=== PATIENT | female | born 1985 | race Hispanic/Latino ===

== ENCOUNTER 2017-05-01 03:16 | Emergency (ER) | payer BC ==
[2017-05-01 03:16] VITALS: BMI 21.4
[2017-05-01 03:46] VITALS: BP 107/76; PULSE 100; TEMP 98.6; O2SAT 97
--- NOTE | 2017-05-01 03:53 | ED PDOC ---
Arrival/HPI - General Chief Complaint: Shortness Of Breath Time Seen by Provider: 05/01/17 03:30 Historian: Patient - History of Present Illness Narrative History of Present Illness (Text): 05/01/17 03:48 Kurtis Dyson is a 31 year old female, whose past medical history includes asthma, presents to the Emergency department complaining of possible chest pain prior to arrival. Patient states she was cleaning her home a week ago when she had an episode of asthma exacerbation. Patient informs going to an urgent care and was diagnosed with possible inflammation of the bronchus. Patient currently states no trouble breathing but states worsening chest pain for which she presents to the Emergency department. Patient denies any fever, chills, nausea, vomiting, abdominal pain, trauma or any other complaints. Patient informs her last menstrual cycle was a couple weeks ago. Time/Duration: Prior to Arrival Symptom Onset: Gradual Symptom Course: Unchanged Quality: Aching Activities at Onset: Light Context: Home Past Medical History - Provider Review Nursing Documentation Reviewed: Yes - Tetanus Immunization Tetanus Immunization: Unknown - Cardiac Hx Cardiac Disorders: No - Pulmonary Hx Asthma: Yes - Neurological Hx Neurological Disorder: No - HEENT Hx HEENT Disorder: No - Renal Hx Renal Disorder: No - Endocrine/Metabolic Hx Endocrine Disorders: No - Hematological/Oncological Hx Blood Disorders: No - Integumentary Hx Dermatological Disorder: No - Musculoskeletal/Rheumatological Hx Musculoskeletal Disorders: No - Gastrointestinal Hx Gastrointestinal Disorders: No - Genitourinary/Gynecological Hx Genitourinary Disorders: No - Psychiatric Hx Depression: Yes Hx Emotional Abuse: No Hx Physical Abuse: No Hx Substance Use: No - Past Surgical History Past Surgical History: No Previous - Suicidal Assessment Feels Threatened In Home Enviroment: No Family/Social History - Physician Review Nursing Documentation Reviewed: Yes Family/Social History: Unknown Family HX Smoking Status: Never Smoked Hx Alcohol Use: No Hx Substance Use: No Hx Substance Use Treatment: No Allergies/Home Meds Allergies/Adverse Reactions: Allergies No Known Allergies Allergy (Verified 05/01/17 03:41) Home Medications: Home Meds Medication Instructions Recorded Confirmed Albuterol Sulfate [Proair Hfa] 0.09 mg IH PRN PRN 05/01/17 05/01/17 predniSONE [predniSONE Tab] 4 mg PO QID 05/01/17 05/01/17 Review of Systems - Physician Review All systems were reviewed & negative as marked: Yes - Review of Systems Constitutional: Normal. absent: Fevers, Night Sweats Eyes: Normal ENT: Normal Respiratory: Other (mild discomfort breathing secondary to chest pain ). absent : SOB Cardiovascular: Chest Pain Gastrointestinal: Normal. absent: Abdominal Pain, Diarrhea, Nausea, Vomiting Genitourinary Female: Normal Musculoskeletal: Normal Skin: Normal Neurological: Normal Endocrine: Normal Hemo/Lymphatic: Normal Psychiatric: Normal Physical Exam Vital Signs Reviewed: Yes Vital Signs Temp Pulse Resp BP Pulse Ox 05/01/17 03:42 98.6 F 100 H 18 107/76 97 Temperature: Afebrile Blood Pressure: Normal Pulse: Regular Respiratory Rate: Normal Appearance: Positive for: Well-Appearing, Non-Toxic, Comfortable Pain Distress: None Mental Status: Positive for: Alert and Oriented X 3 - Systems Exam Head: Present: Atraumatic, Normocephalic Pupils: Present: PERRL Extroacular Muscles: Present: EOMI Conjunctiva: Present: Normal Mouth: Present: Moist Mucous Membranes Neck: Present: Normal Range of Motion Respiratory/Chest: Present: Clear to Auscultation, Good Air Exchange. No: Respiratory Distress, Accessory Muscle Use Cardiovascular: Present: Regular Rate and Rhythm, Normal S1, S2. No: Murmurs Abdomen: Present: Normal Bowel Sounds. No: Tenderness, Distention, Peritoneal Signs Back: Present: Normal Inspection Upper Extremity: Present: Normal Inspection. No: Cyanosis, Edema Lower Extremity: Present: Normal Inspection. No: Edema Neurological: Present: GCS=15, CN II-XII Intact, Speech Normal Skin: Present: Warm, Dry, Normal Color. No: Rashes Psychiatric: Present: Alert, Oriented x 3, Normal Insight, Normal Concentration Medical Decision Making ED Course and Treatment: 05/01/17 03:55 Impression: 31 year old female presents to the Emergency department complaining of chest pain. Differential Diagnosis included but are not limited to: asthma exacerbation vs. inflammation of bronchioles Plan: -- Chest X-ray -- Reassess and disposition Progress Notes: - RAD Interpretation Radiology Orders: 05/01/17 03:50 CHEST TWO VIEWS (PA/LAT) [RAD] Stat - Scribe Statement The provider has reviewed the documentation as recorded by the Scribe Mali Colin. All medical record entries made by the Scribe were at my direction and personally dictated by me. I have reviewed the chart and agree that the record accurately reflects my personal performance of the history, physical exam, medical decision making, and the department course for this patient. I have also personally directed, reviewed, and agree with the discharge instructions and disposition. Disposition/Present on Arrival - Present on Arrival Any Indicators Present on Arrival: No History of DVT/PE: No History of Uncontrolled Diabetes: No Urinary Catheter: No History of Decub. Ulcer: No History Surgical Site Infection Following: None - Disposition Have Diagnosis and Disposition been Completed?: No Diagnosis: Bronchitis Disposition: HOME/ ROUTINE Disposition Time: 05:00 Patient Plan: Discharge Condition: STABLE Prescriptions: Budesonide [Pulmicort Flexhaler] 90 mcg IH BID #1 [email or web address] Forms: [employer] ([place])
[2017-05-01 05:09] VITALS: RESP 16
--- NOTE | 2017-05-01 09:46 | RAD ---
HISTORY: pain COMPARISON: 05/29/2016 TECHNIQUE: Chest PA and lateral FINDINGS: LUNGS: No active pulmonary disease. PLEURA: No significant pleural effusion identified. No pneumothorax apparent. CARDIOVASCULAR: Normal. OSSEOUS STRUCTURES: No significant abnormalities. VISUALIZED UPPER ABDOMEN: Normal. OTHER FINDINGS: None. IMPRESSION: No active disease.
== END 2017-05-01 05:09 | disposition home or self-care (01) ==
LOC: ED 03:16
DX: J40 Bronchitis, not specified as acute or chronic (principal)

== ENCOUNTER 2017-08-20 01:03 | Emergency (ER) | payer BC ==
[2017-08-20 01:03] VITALS: BMI 21.4
[2017-08-20 02:16] VITALS: BP 113/72; PULSE 90; RESP 18; TEMP 98; O2SAT 98
--- NOTE | 2017-08-20 02:31 | ED PDOC ---
Arrival/HPI - General Chief Complaint: Allergic Reaction Time Seen by Provider: 08/20/17 02:06 Historian: Patient - History of Present Illness Narrative History of Present Illness (Text): 08/20/17 02:32 A 32 year old female, whose past medical history includes bronchial asthma, presents to the emergency department complaining of hive-like skin rash to lower legs for the past day and half. Patient reports itching to area. Patient started taking Benadryl, which improved her symptoms. Reports a little shortness of breath during the day and used her inhaler, with relief. Patient notes she took Benadryl earlier today. Patient denies any chest pain, shortness of breath, fever, chills or any other complaints at this time. Symptom Onset: Sudden Symptom Course: Unchanged Activities at Onset: Rest Context: Home Past Medical History - Provider Review Nursing Documentation Reviewed: Yes - Tetanus Immunization Tetanus Immunization: Unknown - Cardiac Hx Cardiac Disorders: No - Pulmonary Hx Asthma: Yes - Neurological Hx Neurological Disorder: No - HEENT Hx HEENT Disorder: No - Renal Hx Renal Disorder: No - Endocrine/Metabolic Hx Endocrine Disorders: No - Hematological/Oncological Hx Blood Disorders: No - Integumentary Hx Dermatological Disorder: No Hx Eczema: Yes - Musculoskeletal/Rheumatological Hx Musculoskeletal Disorders: No - Gastrointestinal Hx Gastrointestinal Disorders: No - Genitourinary/Gynecological Hx Genitourinary Disorders: No - Psychiatric Hx Anxiety: Yes Hx Depression: Yes Hx Emotional Abuse: No Hx Physical Abuse: No Hx Substance Use: No - Past Surgical History Past Surgical History: No Previous - Suicidal Assessment Feels Threatened In Home Enviroment: No Family/Social History - Physician Review Nursing Documentation Reviewed: Yes Family/Social History: No Known Family HX Smoking Status: Never Smoked Hx Alcohol Use: No Hx Substance Use: No Hx Substance Use Treatment: No Allergies/Home Meds Allergies/Adverse Reactions: Allergies No Known Allergies Allergy (Verified 08/20/17 02:09) Home Medications: Home Meds Medication Instructions Recorded Confirmed Albuterol Sulfate [Proair Hfa] 1 inhaler INH Q4 PRN 08/20/17 08/20/17 Walfex 180 mg PO DAILY 08/20/17 08/20/17 Review of Systems - Physician Review All systems were reviewed & negative as marked: Yes - Review of Systems Constitutional: absent: Fevers, Other (chills) Respiratory: absent: SOB Cardiovascular: absent: Chest Pain Skin: Rash (lower legs) Physical Exam Vital Signs Reviewed: Yes Vital Signs Temp Pulse Resp BP Pulse Ox 08/20/17 02:11 98.0 F 90 18 113/72 98 Temperature: Afebrile Blood Pressure: Normal Pulse: Regular Respiratory Rate: Normal Appearance: Positive for: Well-Appearing, Non-Toxic, Comfortable Pain Distress: None Mental Status: Positive for: Alert and Oriented X 3 - Systems Exam Head: Present: Atraumatic, Normocephalic Pupils: Present: PERRL Extroacular Muscles: Present: EOMI Conjunctiva: Present: Normal Mouth: Present: Moist Mucous Membranes Neck: Present: Normal Range of Motion Respiratory/Chest: Present: Clear to Auscultation, Good Air Exchange. No: Respiratory Distress, Accessory Muscle Use Cardiovascular: Present: Regular Rate and Rhythm, Normal S1, S2. No: Murmurs Abdomen: No: Tenderness, Distention, Peritoneal Signs Back: Present: Normal Inspection Upper Extremity: Present: Normal Inspection. No: Cyanosis, Edema Lower Extremity: Present: Normal Inspection. No: Edema Neurological: Present: GCS=15, CN II-XII Intact, Speech Normal Skin: Present: Rashes (few scattered urticarial to lower legs) Psychiatric: Present: Alert, Oriented x 3, Normal Insight, Normal Concentration Medical Decision Making ED Course and Treatment: 08/20/17 02:29 Impression: A 32 year old female with rash to lower legs. Plan: -- Solumedrol -- Reassess and disposition Prior Visits: Notes and results from previous visits were reviewed. Patient was last seen in the emergency department on 05/01/17 for evaluation of chest pain. Progress Notes: - Medication Orders Current Medication Orders: Discontinued Medications Methylprednisolone (Solu-Medrol) 125 mg IVP ONCE ONE Stop: 08/20/17 02:26 Last Admin: 08/20/17 02:40 Dose: 125 mg IVP Administration Document 08/20/17 02:40 SS (Rec: 08/20/17 02:42 SS [id number]) Charges for Administration # of IVP Administrations 1 - Scribe Statement The provider has reviewed the documentation as recorded by the Fady Odom Provider Scribe Attestation: All medical record entries made by the Scribe were at my direction and personally dictated by me. I have reviewed the chart and agree that the record accurately reflects my personal performance of the history, physical exam, medical decision making, and the department course for this patient. I have also personally directed, reviewed, and agree with the discharge instructions and disposition. Disposition/Present on Arrival - Present on Arrival Any Indicators Present on Arrival: No History of DVT/PE: No History of Uncontrolled Diabetes: No Urinary Catheter: No History of Decub. Ulcer: No History Surgical Site Infection Following: None - Disposition Have Diagnosis and Disposition been Completed?: Yes Diagnosis: Allergic reaction, Urticaria Disposition: HOME/ ROUTINE Disposition Time: 03:20 Patient Plan: Discharge Condition: STABLE Discharge Instructions (ExitCare): [place] (DC) Additional Instructions: Take meds as prescribed/follow up with your doctor this week Prescriptions: DiphenhydrAMINE [Benadryl] 50 mg PO Q6 PRN #24 cap PRN Reason: Itching / Pruritus predniSONE [Prednisone] 40 mg PO DAILY #10 tab Referrals: Abel Haines MD [Staff Provider] - Follow up with primary Forms: [employer] ([place])
== END 2017-08-20 03:46 | disposition home or self-care (01) ==
LOC: ED 01:03
DX: L50.0 Allergic urticaria (principal)
CPT/HCPCS: 96374; 99283; J2930

== ENCOUNTER 2017-08-31 03:22 | Emergency (ER) | payer SELFPAY ==
[2017-08-31 03:22] VITALS: BMI 21.4
[2017-08-31 03:27] VITALS: RESP 18
[2017-08-31] MEDS ORDERED: DiphenhydrAMINE 50 mg/ml Inj ONE (03:40)
[2017-08-31] MEDS ORDERED: DiphenhydrAMINE 50 mg/ml Inj IVP STA (03:49)
[2017-08-31] MEDS ORDERED: Famotidine 20mg/50ml 20 MG/50 ML BAG IVPB STA (03:49)
[2017-08-31] MEDS ORDERED: Sodium Chloride 0.9% 1,000 ML IV STA (03:54)
--- NOTE | 2017-08-31 04:04 | ED PDOC ---
Arrival/HPI - General Chief Complaint: Allergic Reaction Time Seen by Provider: 08/31/17 03:27 - History of Present Illness Narrative History of Present Illness (Text): 32 y/o F c history of seasonal allergies, asthma, eczema p/w urticaria to limbs and lip swelling today. Patient states she had similar symptoms earlier this week, was treated in hospital with benadryl and steroids, resolved, stopped steroids 2 days early, now has urticaria and lip swelling. Unknown allergen. States threw out body wash, only eating tomato/cheese/lettuce sandwiches in fear or eating an allergen. Past Medical History - Infectious Disease Hx of Infectious Diseases: None - Tetanus Immunization Tetanus Immunization: Unknown - Cardiac Hx Cardiac Disorders: No - Pulmonary Hx Asthma: Yes - Neurological Hx Neurological Disorder: No - HEENT Hx HEENT Disorder: No - Renal Hx Renal Disorder: No - Endocrine/Metabolic Hx Endocrine Disorders: No - Hematological/Oncological Hx Blood Disorders: No - Integumentary Hx Dermatological Disorder: No Hx Eczema: Yes - Musculoskeletal/Rheumatological Hx Musculoskeletal Disorders: No - Gastrointestinal Hx Gastrointestinal Disorders: No Hx Gastroesophageal Reflux: Yes - Genitourinary/Gynecological Hx Genitourinary Disorders: No - Psychiatric Hx Anxiety: Yes Hx Depression: Yes Hx Emotional Abuse: No Hx Physical Abuse: No Hx Substance Use: No - Past Surgical History Past Surgical History: No Previous - Anesthesia Hx Anesthesia: No - Suicidal Assessment Feels Threatened In Home Enviroment: No Family/Social History Family/Social History: No Known Family HX Smoking Status: Never Smoked Hx Alcohol Use: No Hx Substance Use: No Hx Substance Use Treatment: No Allergies/Home Meds Allergies/Adverse Reactions: Allergies No Known Allergies Allergy (Verified 08/20/17 02:09) Home Medications: Home Meds Medication Instructions Recorded Confirmed Albuterol Sulfate [Proair Hfa] 1 inhaler INH Q4 PRN 08/20/17 08/20/17 Walfex 180 mg PO DAILY 08/20/17 08/20/17 Review of Systems - Physician Review All systems were reviewed & negative as marked: Yes - Review of Systems Constitutional: absent: Fevers Cardiovascular: absent: Chest Pain Physical Exam - Physical Exam Narrative Physical Exam (Text): Gen: NAD Head: NC Eyes: PERRL ENT: No stridor. Lips swollen. No tongue swelling. Neck: Supple CV: Regular rate Lungs: No wheezing Abd: Soft Skin: Urticaria Extremities: No edema Neuro: Alert Vital Signs Temp Pulse Resp BP Pulse Ox 08/31/17 03:27 97.9 F 92 H 18 138/82 98 Medical Decision Making ED Course and Treatment: Benadryl, Pepcid, Solumedrol, IVF and reassess. Feels much better. Discharge on epi pen. F/u allergy, return to ED immediately for any vomiting, lightheadedness, or difficulty breathing. - Medication Orders Current Medication Orders: Discontinued Medications Diphenhydramine HCl (Benadryl) 50 mg IVP STAT STA Stop: 08/31/17 03:50 Last Admin: 08/31/17 04:07 Dose: 50 mg IVP Administration Document 08/31/17 04:07 RADHA (Rec: 08/31/17 04:07 RADHA [id number]) Charges for Administration # of IVP Administrations 1 Famotidine (Pepcid 20mg/50ml Premix) 20 mg in 50 mls @ 100 mls/hr IVPB STAT STA Stop: 08/31/17 04:18 Last Admin: 08/31/17 04:04 Dose: 100 mls/hr eMAR Start Stop Document 08/31/17 04:04 RADHA (Rec: 08/31/17 04:04 RADHA [id number]) Intravenous Solution Start Date 08/31/17 Start Time 04:04 End Date 08/31/17 End time 04:34 Total Infusion Time 30 Sodium Chloride (Sodium Chloride 0.9%) 1,000 mls @ 999 mls/hr IV .Q1H1M STA Stop: 08/31/17 04:54 Last Admin: 08/31/17 04:08 Dose: 999 mls/hr eMAR Start Stop Document 08/31/17 04:08 RADHA (Rec: 08/31/17 04:08 [email or web address] [id number]) Intravenous Solution Start Date 08/31/17 Start Time 04:08 End Date 08/31/17 End time 05:08 Total Infusion Time 60 Methylprednisolone (Solu-Medrol) 125 mg IVP STAT STA Stop: 08/31/17 03:49 Last Admin: 08/31/17 04:07 Dose: 125 mg IVP Administration Document 08/31/17 04:07 RADHA (Rec: 08/31/17 04:07 RADHA [id number]) Charges for Administration # of IVP Administrations 1 Disposition/Present on Arrival - Present on Arrival Any Indicators Present on Arrival: No History of DVT/PE: No History of Uncontrolled Diabetes: No Urinary Catheter: No History of Decub. Ulcer: No History Surgical Site Infection Following: None - Disposition Have Diagnosis and Disposition been Completed?: Yes Diagnosis: Allergic reaction Disposition: HOME/ ROUTINE Disposition Time: 05:32 Patient Plan: Discharge Condition: STABLE Discharge Instructions (ExitCare): Hives (DC) Prescriptions: DiphenhydrAMINE [Benadryl] 2 cap PO Q8 #25 cap Epinephrine [Epipen] 0.3 mg IJ ONCE PRN #1 auto.injct PRN Reason: Anaphylaxis Famotidine [Pepcid] 1 tab PO BID #14 tab Prednisone [Deltasone] 3 tab PO DAILY #12 tablet Referrals: Chris Doherty, [Primary Care Provider] - Follow up with primary Forms: [employer] ([place])
[2017-08-31 05:58] VITALS: BP 127/69; PULSE 74; TEMP 98.2; O2SAT 99
== END 2017-08-31 05:56 | disposition home or self-care (01) ==
LOC: ED 03:22
DX: T78.49XA Other allergy, initial encounter (principal); X58.XXXA Exposure to other specified factors, initial encounter
CPT/HCPCS: 96361; 96365; 96375; 99283; J1200; J2930; J7040